=== PATIENT | female | born 1935 | race Caucasian/White ===

== ENCOUNTER 2023-08-31 19:55 | Emergency (ER) | payer OTHER ==
[~2023-08-31] VITALS: Ht 157.5 cm; Wt 59.0 kg
[2023-08-31 19:57] VITALS: BP_SYST 124; PULSE 88; RESP 20; TEMP 97.8; O2SAT 100
[2023-08-31] MEDS: METOCLOPRAMIDE HCL 10 MG/2 ML VIAL IVP ONE (21:41)
[2023-08-31] MEDS: GLUCAGON,HUMAN RECOMBINANT 1 MG VIAL IVP ONE (21:41)
[2023-08-31] MEDS: NACL 0.9% 1,000 ML IV ONE (21:42)
[2023-08-31 23:07] VITALS: BP_SYST 124; PULSE 87; RESP 16; TEMP 98.1; O2SAT 95
== END 2023-08-31 22:40 | disposition home or self-care (01) ==
LOC: SED 19:55
DX: T17.298A Other foreign object in pharynx causing other injury, initial encounter (principal); W44.8XXA Other foreign body entering into or through a natural orifice, initial encounter; Y93.89 Activity, other specified; Y92.89 Other specified places as the place of occurrence of the external cause; Y99.8 Other external cause status
CPT/HCPCS: 99284; 96374; 96361; 96375; 70360; J1610; J2765; J7030